=== PATIENT | female | born 1950 | race African-American/Black ===

== ENCOUNTER 2017-06-24 21:56 | Inpatient (IN) | payer MEDICARE, MEDICAID ==
[~2017-06-24] VITALS: Ht 170.2 cm; Wt 80.7 kg
[~2017-06-24 21:56] MED LIST: ASPI81TA13 PO; ENAL2.5T PO; GABA100C9 PO; GLIP-116 PO; INSLANTI SC; METO50TA7 PO; SIMV20TA90 PO
[2017-06-24 23:26] LABS: Basophils # (auto) 0.1 uL; Eosinophils # (auto) 0.2 uL; Eosinophils % (auto) 2.1 % (0.0-7.0); Hematocrit 37.1 % (36.0-46.0); Hemoglobin 12.3 g/dL (12.2-16.2); Lymphocytes # (auto) 1.5 uL; Lymphocytes % (auto) 17.9 % (10.0-50.0); Mean Corpuscular Hemoglobin 29.1 pg (28.0-32.0); Mean Corpuscular Hgb Conc. 33.2 g/dL (32.0-36.0); Mean Corpuscular Volume 87.7 fL (80.0-100.0); Monocytes # (auto) 0.5 uL; Monocytes % (auto) 6.3 % (0.0-12.0); Neutrophils # (auto) 6.1 uL; Neutrophils % (auto) 72.7 % (37.0-80.0); Nucleated Red Blood Cells % 0.1 %; Platelet Count (auto) 230 10^3/uL (140-450); Red Blood Cells 4.23 10^6/uL (4.0-5.20); White Blood Cell 8.4 10^3/uL (4.4-10.8)
[2017-06-24 23:44] LABS: Alanine Aminotransferase 20 U/L (13-56); Albumin 3.1 g/dL (3.4-5.0); Anion Gap 10 (5-15); Aspartate Aminotransferase 22 U/L (15-37); BUN/Creatinine Ratio 21.5; Blood Alcohol < 3.0 mg/dL (0-5); Blood Urea Nitrogen 20 mg/dL (7-18); Carbon Dioxide 24 mmol/L (21-32); Chloride 104 mmol/L (98-107); GFR African American 78 mL/min; GFR Non-African American 64 mL/min; Glucose 121 mg/dL (74-106); Potassium 4.4 mmol/L (3.5-5.1); Sodium 138 mmol/L (136-145)
[2017-06-24 23:48] LABS: Alkaline Phosphatase 88 U/L (45-117); Bilirubin, Total 0.2 mg/dL (0.2-1.0); Total Protein 8.6 g/dL (6.4-8.2)
[2017-06-25 00:46] LABS: Amylase 35 U/L (25-115); Lipase 89 U/L (73-393)
[2017-06-25] MEDS ORDERED: cloNIDine HCL 0.1 MG TAB ONE (01:37)
[2017-06-25] MEDS ORDERED: cloNIDine HCL 0.1 MG TAB PO ONE (02:00)
[2017-06-25 02:29] LABS: Urine Bacteria FEW /hpf (None Seen); Urine Blood 1+ /uL (Negative); Urine Budding Yeast FEW /hpf (None Seen); Urine Specific Gravity 1.013 (1.001-1.035); Urine WBC 3 /hpf (0 - 5)
[2017-06-25 02:46] LABS: Alcohol, Urine < 3.0 mg/dL (0-5); Amphetamine Screen, Urine NEGATIVE (NEGATIVE); Barbiturate Scree,Urine NEGATIVE (NEGATIVE); Benzodiazephine Screen, Urine NEGATIVE (NEGATIVE); Cannabinoid Screen, Urine NEGATIVE (NEGATIVE); Cocaine Screen, Urine NEGATIVE (NEGATIVE); Opiate Scree,Urine NEGATIVE (NEGATIVE); Phencyclidine Screen, Urine NEGATIVE (NEGATIVE)
[2017-06-25] MEDS ORDERED: DEXTROSE (50%) 50ML SYRG IV PRN (04:15)
[2017-06-25] MEDS ORDERED: ACETAMINOPHEN 500 MG TAB PO PRN (04:15)
[2017-06-25] MEDS ORDERED: ONDANSETRON HCL 4 MG/2 ML VIAL IV PRN (04:15)
[2017-06-25 05:00] VITALS: BP 135/76
[2017-06-25 05:50] VITALS: BP 135/76
[2017-06-25] MEDS ORDERED: GABAPENTIN 100 MG CAP PO SCH (06:00)
[2017-06-25] MEDS ORDERED: CIPR-217 PO (06:19)
[2017-06-25] MEDS ORDERED: DOXY-216 PO (06:19)
[2017-06-25] MEDS ORDERED: OMEP20CA74 PO (06:19)
[2017-06-25] MEDS: ACCU-CHEK COMFORT CURVE STRIP VI SCH ×4 (06:24→22:23)
[2017-06-25] MEDS: InsuLIN REG 1unit/0.01ml Soln (100units/ml) SC SCH ×4 (06:29→22:00)
[2017-06-25 07:06] LABS: Basophils # (auto) 0.1 uL; Basophils % (auto) 1.1 % (0.0-2.0); Eosinophils # (auto) 0.1 uL; Eosinophils % (auto) 1.7 % (0.0-7.0); Hematocrit 37.8 % (36.0-46.0); Hemoglobin 12.5 g/dL (12.2-16.2); Lymphocytes # (auto) 1.8 uL; Lymphocytes % (auto) 24.5 % (10.0-50.0); Mean Corpuscular Hemoglobin 29.1 pg (28.0-32.0); Mean Corpuscular Volume 88.3 fL (80.0-100.0); Monocytes # (auto) 0.5 uL; Monocytes % (auto) 6.7 % (0.0-12.0); Neutrophils # (auto) 4.8 uL; Nucleated Red Blood Cells % 0.1 %; Platelet Count (auto) 244 10^3/uL (140-450); Red Blood Cells 4.28 10^6/uL (4.0-5.20); Red Cell Distribution Width 13.9 % (11.8-14.3); White Blood Cell 7.2 10^3/uL (4.4-10.8)
[2017-06-25 07:31] LABS: BUN/Creatinine Ratio 21.1; Calcium 8.7 mg/dL (8.5-10.1)
[2017-06-25 07:34] LABS: Cholesterol 150 mg/dL (< 200); HDL Cholesterol 47 mg/dL (40-59); LDL Cholesterol 94 mg/dL (< 100); Triglycerides 136 mg/dL (< 150)
[2017-06-25 09:00] VITALS: BP 139/87
[2017-06-25] MEDS: ASPirin-EC 81 mg tab PO SCH (10:11)
[2017-06-25] MEDS: METOPROLOL SUCCINATE XL 50 MG TAB PO SCH (10:11)
[2017-06-25] MEDS ORDERED: LORazepam 2MG/ML-1ML VIAL IV PRN (14:15)
[2017-06-25 16:39] VITALS: BP 143/82
[2017-06-25 22:00] VITALS: BP 155/81
[2017-06-25] MEDS ORDERED: INSULIN LANTUS (GLARGINE) 1 /0.01ml (100units/ml) SC SCH (22:00)
[2017-06-25] MEDS: ATORVASTATIN 20 MG TAB PO SCH (22:22)
[2017-06-25] MEDS: GABAPENTIN 100 MG CAP PO SCH (22:22)
[2017-06-26] VITALS (7 sets, daily range): BP systolic 140–159; BP diastolic 61–84
[2017-06-26] MEDS: ACCU-CHEK COMFORT CURVE STRIP VI SCH ×4 (06:14→21:45)
[2017-06-26] MEDS: GABAPENTIN 100 MG CAP PO SCH ×3 (06:14→21:45)
[2017-06-26] MEDS: InsuLIN REG 1unit/0.01ml Soln (100units/ml) SC SCH ×4 (06:21→21:45)
[2017-06-26 06:45] LABS: Anion Gap 7 (5-15); BUN/Creatinine Ratio 20.2; Blood Urea Nitrogen 18 mg/dL (7-18); Calcium 8.4 mg/dL (8.5-10.1); Carbon Dioxide 26 mmol/L (21-32); Chloride 106 mmol/L (98-107); GFR African American 82 mL/min; GFR Non-African American 67 mL/min; Glucose 131 mg/dL (74-106); Potassium 4.1 mmol/L (3.5-5.1); Sodium 139 mmol/L (136-145)
[2017-06-26] MEDS: ASPirin-EC 81 mg tab PO SCH (10:50)
[2017-06-26] MEDS: METOPROLOL SUCCINATE XL 50 MG TAB PO SCH (10:51)
[2017-06-26] MEDS ORDERED: ENALAPRIL MALEATE 10 MG TAB PO ONE (14:00)
[2017-06-26] MEDS: ATORVASTATIN 20 MG TAB PO SCH (21:44)
[2017-06-26] MEDS ORDERED: INSULIN LANTUS (GLARGINE) 1 /0.01ml (100units/ml) SC SCH (22:00)
[2017-06-27 05:00] VITALS: BP 136/75
[2017-06-27] MEDS: GABAPENTIN 100 MG CAP PO SCH ×3 (06:37→21:35)
[2017-06-27] MEDS: ACCU-CHEK COMFORT CURVE STRIP VI SCH ×4 (06:37→21:37)
[2017-06-27 06:38] LABS: BUN/Creatinine Ratio 21.6; Calcium 8.8 mg/dL (8.5-10.1); Potassium 4.3 mmol/L (3.5-5.1)
[2017-06-27] MEDS: InsuLIN REG 1unit/0.01ml Soln (100units/ml) SC SCH ×4 (06:40→21:38)
[2017-06-27 08:00] VITALS: BP 163/85
[2017-06-27] MEDS: ENALAPRIL MALEATE 10 MG TAB PO SCH (08:35)
[2017-06-27] MEDS: ASPirin-EC 81 mg tab PO SCH (08:36)
[2017-06-27] MEDS: METOPROLOL SUCCINATE XL 50 MG TAB PO SCH (08:36)
[2017-06-27 09:22] VITALS: BP 163/85
[2017-06-27] MEDS ORDERED: glipiZIDE 5 MG TAB PO ONE (11:45)
[2017-06-27] MEDS ORDERED: GAB100C PO (11:53)
[2017-06-27] MEDS ORDERED: amLODIPine BESYLATE 5 MG TAB PO ONE (12:00)
[2017-06-27] MEDS ORDERED: INSLANTI SC (12:17)
[2017-06-27 12:31] LABS: Hepatitis B Surface Antibody Negative
[2017-06-27 12:35] VITALS: BP 160/90
[2017-06-27 13:01] LABS: Hepatitis A Total Antibody Positive; Hepatitis C Antibody Negative (Negative)
[2017-06-27 13:26] LABS: Hepatitis B Core Total AB Positive; Hepatitis B Surface Antigen Positive (Negative)
[2017-06-27] MEDS: HYDROcodone-ACET 5/325MG TAB PO PRN (17:43)
[2017-06-27] MEDS ORDERED: cloNIDine HCL 0.1 MG TAB PO PRN (19:30)
[2017-06-27] MEDS: ATORVASTATIN 20 MG TAB PO SCH (21:35)
[2017-06-27 22:00] VITALS: BP 134/70
[2017-06-27] MEDS ORDERED: INSULIN LANTUS (GLARGINE) 1 /0.01ml (100units/ml) SC SCH (22:00)
[2017-06-28 04:49] VITALS: BP 145/75
[2017-06-28] MEDS: GABAPENTIN 100 MG CAP PO SCH ×2 (06:28→15:05)
[2017-06-28] MEDS: ACCU-CHEK COMFORT CURVE STRIP VI SCH ×3 (06:28→18:20)
[2017-06-28] MEDS: InsuLIN REG 1unit/0.01ml Soln (100units/ml) SC SCH ×3 (06:32→18:20)
[2017-06-28] MEDS: HYDROcodone-ACET 5/325MG TAB PO PRN (06:39)
[2017-06-28 08:12] VITALS: BP 140/77
[2017-06-28 11:42] VITALS: BP 139/70
[2017-06-28] MEDS: ASPirin-EC 81 mg tab PO SCH (13:13)
[2017-06-28] MEDS: ENALAPRIL MALEATE 10 MG TAB PO SCH (13:14)
[2017-06-28] MEDS: METOPROLOL SUCCINATE XL 50 MG TAB PO SCH (13:14)
== END 2017-06-28 19:25 | DRG 64 ==
LOC: EDBD 21:56 → ER 21:56 → OVERFLOW 21:57 → WEST WING 06-25 04:39
PROVIDERS: ADMIT Nurse Practitioner Family; ATTEND Internal Medicine
DX: I63.9 Cerebral infarction, unspecified (principal); G93.41 Metabolic encephalopathy; N17.9 Acute kidney failure, unspecified; B19.10 Unspecified viral hepatitis B without hepatic coma; E11.42 Type 2 diabetes mellitus with diabetic polyneuropathy; T66.XXXA Radiation sickness, unspecified, initial encounter; I10 Essential (primary) hypertension; E78.5 Hyperlipidemia, unspecified; E86.0 Dehydration; K21.9 Gastro-esophageal reflux disease without esophagitis; Z79.4 Long term (current) use of insulin; F32.9 Major depressive disorder, single episode, unspecified; Z79.82 Long term (current) use of aspirin; Z79.899 Other long term (current) drug therapy; Z80.3 Family history of malignant neoplasm of breast; Z82.49 Family history of ischemic heart disease and other diseases of the circulatory system; Z83.3 Family history of diabetes mellitus; Z90.710 Acquired absence of both cervix and uterus; Z71.3 Dietary counseling and surveillance
CPT/HCPCS: 36415; 70450; 70551; 71045; 80048; 80053; 80061; 80307; 80320; 81001; 82150; 82607; 82962; 83036; 83690; 83735; 84443; 84484; 85025; 86704; 86706; 86708; 86803; 87045; 87340; 87899; 93005; 93306; 93886; 95819; 97116; 97163; 97530; J1815; J2405

== ENCOUNTER 2017-08-03 16:18 | Inpatient (IN) | payer MEDICARE, MEDICAID ==
[~2017-08-03] VITALS: Ht 167.6 cm; Wt 85.0 kg
[~2017-08-03 16:18] MED LIST changes: +CIPR-217 PO; +DOXY-216 PO; +GAB100C PO; -GABA100C9 PO; -GLIP-116 PO; +OMEP20CA74 PO
[2017-08-03 19:00] LABS: Basophils # (auto) 0.1 uL; Basophils % (auto) 1.3 % (0.0-2.0); Eosinophils # (auto) 0.2 uL; Eosinophils % (auto) 3.1 % (0.0-7.0); Hemoglobin 11.3 g/dL (12.2-16.2); Lymphocytes # (auto) 2.3 uL; Mean Corpuscular Hemoglobin 29.6 pg (28.0-32.0); Mean Corpuscular Hgb Conc. 34.2 g/dL (32.0-36.0); Mean Corpuscular Volume 86.7 fL (80.0-100.0); Monocytes # (auto) 0.6 uL; Monocytes % (auto) 8.7 % (0.0-12.0); Neutrophils # (auto) 3.9 uL; Neutrophils % (auto) 54.9 % (37.0-80.0); Nucleated Red Blood Cells % 0.1 %; Platelet Count (auto) 217 10^3/uL (140-450); Red Cell Distribution Width 14.8 % (11.8-14.3); White Blood Cell 7.1 10^3/uL (4.4-10.8)
[2017-08-03] MEDS ORDERED: ASPirin-EC 81 mg tab PO ONE (19:00)
[2017-08-03 19:12] LABS: INR 0.95 (0.9-1.15); Partial Thromboplastin Time 26.5 sec (22.64-33.71); Prothrombin Time 10.4 sec (9.37-12.3)
[2017-08-03 19:26] LABS: Alanine Aminotransferase 14 U/L (13-56); Albumin 2.8 g/dL (3.4-5.0); Alkaline Phosphatase 66 U/L (45-117); Anion Gap 6 (5-15); Aspartate Aminotransferase 27 U/L (15-37); BUN/Creatinine Ratio 17.8; Bilirubin, Total 0.1 mg/dL (0.2-1.0); Blood Urea Nitrogen 18 mg/dL (7-18); Carbon Dioxide 28 mmol/L (21-32); Chloride 108 mmol/L (98-107); GFR African American 70 mL/min; GFR Non-African American 58 mL/min; Glucose 62 mg/dL (74-106); Magnesium 2.2 mg/dL (1.6-2.6); Potassium 3.7 mmol/L (3.5-5.1); Sodium 142 mmol/L (136-145); Total Protein 7.8 g/dL (6.4-8.2)
[2017-08-03] MEDS ORDERED: MORPHINE SULFATE 4 MG/ML SYR/VIAL IV PRN (22:00)
[2017-08-03] MEDS ORDERED: NITROGLYCERIN 0.4 MG SL TAB SL PRN (22:00)
[2017-08-03] MEDS ORDERED: ONDANSETRON HCL 4 MG/2 ML VIAL IV PRN (22:00)
[2017-08-03] MEDS ORDERED: ACETAMINOPHEN 500 MG TAB PO PRN (22:00)
[2017-08-03] MEDS ORDERED: HYDROcodone-ACET 5/325MG TAB PO PRN (22:00)
[2017-08-03] MEDS ORDERED: GABAPENTIN 100 MG CAP PO SCH (22:00)
[2017-08-03] MEDS ORDERED: DEXTROSE (50%) 50ML SYRG IV PRN (23:15)
[2017-08-03] MEDS ORDERED: cloNIDine HCL 0.1 MG TAB PO PRN (23:30)
[2017-08-04] MEDS ORDERED: cloNIDine HCL 0.1 MG TAB PO PRN
[2017-08-04 01:00] VITALS: BP 142/84
[2017-08-04 05:00] VITALS: BP 143/75
[2017-08-04] MEDS: ACCU-CHEK COMFORT CURVE STRIP VI SCH ×2 (06:18→11:23)
[2017-08-04] MEDS: GABAPENTIN 100 MG CAP PO SCH ×2 (06:18→14:28)
[2017-08-04] MEDS: InsuLIN REG 1unit/0.01ml Soln (100units/ml) SC SCH ×2 (06:23→11:22)
[2017-08-04 06:48] LABS: Basophils # (auto) 0 uL; Basophils % (auto) 0.7 % (0.0-2.0); Eosinophils # (auto) 0.2 uL; Eosinophils % (auto) 3.3 % (0.0-7.0); Hematocrit 33.9 % (36.0-46.0); Hemoglobin 11.3 g/dL (12.2-16.2); Lymphocytes # (auto) 1.9 uL; Lymphocytes % (auto) 31.5 % (10.0-50.0); Mean Corpuscular Hemoglobin 28.8 pg (28.0-32.0); Mean Corpuscular Hgb Conc. 33.4 g/dL (32.0-36.0); Mean Corpuscular Volume 86.4 fL (80.0-100.0); Monocytes # (auto) 0.5 uL; Monocytes % (auto) 7.9 % (0.0-12.0); Neutrophils # (auto) 3.5 uL; Neutrophils % (auto) 56.6 % (37.0-80.0); Platelet Count (auto) 222 10^3/uL (140-450); Red Blood Cells 3.92 10^6/uL (4.0-5.20); Red Cell Distribution Width 14.5 % (11.8-14.3); White Blood Cell 6.2 10^3/uL (4.4-10.8)
[2017-08-04 07:19] LABS: BUN/Creatinine Ratio 17.8; Calcium 8.2 mg/dL (8.5-10.1); Potassium 3.8 mmol/L (3.5-5.1)
[2017-08-04 08:00] VITALS: BP 142/84
[2017-08-04 09:00] VITALS: BP 164/80
[2017-08-04] MEDS ORDERED: ENALAPRIL MALEATE 10 MG TAB PO SCH (10:00)
[2017-08-04] MEDS ORDERED: ASPirin-EC 81 mg tab PO SCH (10:00)
[2017-08-04] MEDS ORDERED: METOPROLOL SUCCINATE XL 50 MG TAB PO SCH (10:00)
[2017-08-04 13:00] VITALS: BP 131/61
[2017-08-04 15:53] VITALS: BP 164/80
== END 2017-08-04 17:15 | disposition home or self-care (01) | DRG 683 ==
LOC: ER 16:18 → TELE 16:19 → TELE-WESTW 23:16
PROVIDERS: ADMIT Nurse Practitioner Family; ATTEND Nurse Practitioner Family
DX: I12.9 Hypertensive chronic kidney disease with stage 1 through stage 4 chronic kidney disease, or unspecified chronic kidney disease (principal); E44.0 Moderate protein-calorie malnutrition; E11.22 Type 2 diabetes mellitus with diabetic chronic kidney disease; E11.51 Type 2 diabetes mellitus with diabetic peripheral angiopathy without gangrene; E11.621 Type 2 diabetes mellitus with foot ulcer; I25.10 Atherosclerotic heart disease of native coronary artery without angina pectoris; E11.65 Type 2 diabetes mellitus with hyperglycemia; E78.5 Hyperlipidemia, unspecified; D63.8 Anemia in other chronic diseases classified elsewhere; F32.9 Major depressive disorder, single episode, unspecified; F41.9 Anxiety disorder, unspecified; K21.9 Gastro-esophageal reflux disease without esophagitis; L97.519 Non-pressure chronic ulcer of other part of right foot with unspecified severity; L97.529 Non-pressure chronic ulcer of other part of left foot with unspecified severity; Z79.4 Long term (current) use of insulin; Z79.82 Long term (current) use of aspirin; Z80.3 Family history of malignant neoplasm of breast; Z79.899 Other long term (current) drug therapy; Z82.49 Family history of ischemic heart disease and other diseases of the circulatory system; Z85.3 Personal history of malignant neoplasm of breast; Z83.3 Family history of diabetes mellitus; Z90.710 Acquired absence of both cervix and uterus; Z86.73 Personal history of transient ischemic attack (TIA), and cerebral infarction without residual deficits; Z68.30 Body mass index [BMI] 30.0-30.9, adult; N18.2 Chronic kidney disease, stage 2 (mild)
CPT/HCPCS: 36415; 71045; 80048; 80053; 82962; 83036; 83735; 83880; 84443; 84484; 85025; 85610; 85730; 87081; 93005; 94761; J1815

== ENCOUNTER 2018-03-22 12:49 | Inpatient (IN) | payer MEDICARE, MEDICAID ==
[~2018-03-22] VITALS: Ht 170.2 cm; Wt 89.1 kg
[~2018-03-22 12:49] MED LIST changes: +ASPI1TAB19 PO; -ASPI81TA13 PO; -CIPR-217 PO; -DOXY-216 PO; +MET5XLT PO; -METO50TA7 PO
[2018-03-22] MEDS ORDERED: ASPirin 81 mg TAB PO ONE (14:00)
[2018-03-22 14:30] LABS: Basophils # (auto) 0.1 uL; Basophils % (auto) 0.9 % (0.0-2.0); Eosinophils # (auto) 0.1 uL; Eosinophils % (auto) 2.3 % (0.0-7.0); Hematocrit 39.9 % (36.0-46.0); Hemoglobin 13.2 g/dL (12.2-16.2); Lymphocytes # (auto) 1.6 uL; Lymphocytes % (auto) 26.7 % (10.0-50.0); Mean Corpuscular Hemoglobin 29.7 pg (28.0-32.0); Mean Corpuscular Hgb Conc. 33.1 g/dL (32.0-36.0); Mean Corpuscular Volume 89.9 fL (80.0-100.0); Monocytes # (auto) 0.5 uL; Monocytes % (auto) 7.8 % (0.0-12.0); Neutrophils # (auto) 3.8 uL; Neutrophils % (auto) 62.3 % (37.0-80.0); Nucleated Red Blood Cells % 0.1 %; Platelet Count (auto) 242 10^3/uL (140-450); Red Blood Cells 4.43 10^6/uL (4.0-5.20); Red Cell Distribution Width 14.8 % (11.8-14.3)
[2018-03-22 14:40] LABS: INR 0.97 (0.9-1.15); Prothrombin Time 10.4 sec (9.27-12.13)
[2018-03-22 14:53] LABS: Albumin 3.1 g/dL (3.4-5.0); Anion Gap 11 (5-15); Blood Urea Nitrogen 20 mg/dL (7-18); Calcium 8.9 mg/dL (8.5-10.1); Carbon Dioxide 23 mmol/L (21-32); Chloride 100 mmol/L (98-107); Glucose 400 mg/dL (74-106); Potassium 4.3 mmol/L (3.5-5.1); Sodium 134 mmol/L (136-145)
[2018-03-22 15:01] LABS: Alanine Aminotransferase 29 U/L (13-56); Alkaline Phosphatase 91 U/L (45-117); Aspartate Aminotransferase 21 U/L (15-37); BUN/Creatinine Ratio 13.5; Bilirubin, Total 0.4 mg/dL (0.2-1.0); GFR African American 45 mL/min; GFR Non-African American 37 mL/min; Total Protein 9.3 g/dL (6.4-8.2)
[2018-03-22] MEDS ORDERED: LORazepam 0.5 MG TAB PO PRN (17:30)
[2018-03-22] MEDS ORDERED: NITROGLYCERIN 0.4 MG SL TAB SL PRN (17:30)
[2018-03-22] MEDS ORDERED: TEMAZEPAM 15 MG CAP PO PRN (17:30)
[2018-03-22] MEDS ORDERED: DEXTROSE (50%) 50ML SYRG IV PRN (17:30)
[2018-03-22] MEDS ORDERED: ACETAMINOPHEN 500 MG TAB PO PRN (17:30)
[2018-03-22] MEDS ORDERED: MORPHINE SULFATE 4 MG/ML SYR/VIAL IV PRN (17:30)
[2018-03-22] MEDS: SODIUM CHLORIDE 0.9% 1,000 ML IV SCH (17:54)
[2018-03-22] MEDS: PANTOPRAZOLE 40 MG TAB PO SCH (17:54)
[2018-03-22] MEDS: ACCU-CHEK COMFORT CURVE STRIP VI SCH ×2 (17:55→23:14)
[2018-03-22] MEDS: INSULIN LANTUS (GLARGINE) 1 /0.01ml (100units/ml) SC SCH (17:59)
[2018-03-22] MEDS: InsuLIN REG 1unit/0.01ml Soln (100units/ml) SC SCH ×2 (17:59→23:15)
[2018-03-22 18:02] LABS: Urine Bacteria MOD /hpf (None Seen); Urine Blood 1+ /uL (Negative); Urine Mucus FEW (None Seen); Urine Specific Gravity 1.021 (1.001-1.035); Urine WBC 1 /hpf (0 - 5)
[2018-03-22 18:10] LABS: Alcohol, Urine < 3.0 mg/dL (0-5); Amphetamine Screen, Urine NEGATIVE (NEGATIVE); Barbiturate Scree,Urine NEGATIVE (NEGATIVE); Benzodiazephine Screen, Urine NEGATIVE (NEGATIVE); Cannabinoid Screen, Urine NEGATIVE (NEGATIVE); Cocaine Screen, Urine NEGATIVE (NEGATIVE); Opiate Scree,Urine NEGATIVE (NEGATIVE); Phencyclidine Screen, Urine NEGATIVE (NEGATIVE)
[2018-03-22 22:00] VITALS: BP 150/89
[2018-03-22] MEDS ORDERED: ATORVASTATIN 20 MG TAB PO SCH (22:00)
[2018-03-22] MEDS: GABAPENTIN 100 MG CAP PO SCH (23:13)
[2018-03-22] MEDS: SULFAMETHOX W/TRIMETH(800/160MG) DS TAB PO SCH (23:13)
[2018-03-22] MEDS: ATORVASTATIN 20 MG TAB PO SCH (23:13)
[2018-03-22] MEDS: DOXYCYCLINE 100 MG TAB/CAP PO SCH (23:14)
[2018-03-23] MEDS: InsuLIN REG 1unit/0.01ml Soln (100units/ml) SC SCH ×5 (03:16→20:07)
[2018-03-23] MEDS: ACCU-CHEK COMFORT CURVE STRIP VI SCH ×5 (03:17→20:06)
[2018-03-23 05:00] VITALS: BP 122/60
[2018-03-23] MEDS: INSULIN LANTUS (GLARGINE) 1 /0.01ml (100units/ml) SC SCH ×2 (06:23→17:58)
[2018-03-23] MEDS: SODIUM CHLORIDE 0.9% 1,000 ML IV SCH ×2 (06:34→13:24)
[2018-03-23 07:22] LABS: Basophils # (auto) 0 uL; Basophils % (auto) 0.6 % (0.0-2.0); Eosinophils # (auto) 0.2 uL; Eosinophils % (auto) 3.5 % (0.0-7.0); Hematocrit 36.7 % (36.0-46.0); Hemoglobin 12.2 g/dL (12.2-16.2); Lymphocytes # (auto) 1.8 uL; Lymphocytes % (auto) 34.8 % (10.0-50.0); Mean Corpuscular Hemoglobin 29.6 pg (28.0-32.0); Mean Corpuscular Hgb Conc. 33.3 g/dL (32.0-36.0); Mean Corpuscular Volume 88.7 fL (80.0-100.0); Monocytes # (auto) 0.5 uL; Monocytes % (auto) 9.5 % (0.0-12.0); Neutrophils # (auto) 2.7 uL; Neutrophils % (auto) 51.6 % (37.0-80.0); Nucleated Red Blood Cells % 0.1 %; Platelet Count (auto) 217 10^3/uL (140-450); Red Blood Cells 4.14 10^6/uL (4.0-5.20); White Blood Cell 5.3 10^3/uL (4.4-10.8)
[2018-03-23 07:39] LABS: Albumin 2.7 g/dL (3.4-5.0); Calcium 8.7 mg/dL (8.5-10.1); Potassium 3.9 mmol/L (3.5-5.1)
[2018-03-23 07:43] LABS: BUN/Creatinine Ratio 14.6; Bilirubin, Total 0.2 mg/dL (0.2-1.0); Total Protein 8.2 g/dL (6.4-8.2)
[2018-03-23 08:00] VITALS: BP 134/78
[2018-03-23 09:00] VITALS: BP 134/78
[2018-03-23] MEDS: cefTRIAXone 1GM/50ML D5W 50 ML IV SCH (09:16)
[2018-03-23] MEDS ORDERED: PATIENTS OWN MEDICATION (Omeprazole (Prilosec) 1 CAP) PO SCH (10:00)
[2018-03-23] MEDS: NITROGLYCERIN 0.2MG/HR TOPICAL PATCH TD SCH (10:00)
[2018-03-23] MEDS ORDERED: METOPROLOL SUCCINATE XL 50 MG TAB PO SCH (10:00)
[2018-03-23] MEDS ORDERED: ENALAPRIL MALEATE 2.5 MG TAB PO SCH (10:00)
[2018-03-23] MEDS: DOXYCYCLINE 100 MG TAB/CAP PO SCH ×2 (11:14→21:38)
[2018-03-23] MEDS: ENOXAPARIN SOD 40 MG/0.4 ML SYRINGE SC SCH (11:14)
[2018-03-23] MEDS: METOPROLOL SUCCINATE XL 50 MG TAB PO SCH (11:14)
[2018-03-23] MEDS: GABAPENTIN 100 MG CAP PO SCH ×2 (11:14→21:38)
[2018-03-23] MEDS: SULFAMETHOX W/TRIMETH(800/160MG) DS TAB PO SCH ×2 (11:14→21:37)
[2018-03-23] MEDS: PANTOPRAZOLE 40 MG TAB PO SCH (11:15)
[2018-03-23] MEDS: ASPirin-EC 81 mg tab PO SCH (11:15)
[2018-03-23] MEDS: ENALAPRIL MALEATE 10 MG TAB PO SCH (11:29)
[2018-03-23] MEDS: PROMETHAZINE HCL 25 MG/ML 1ML IV PRN (12:51)
[2018-03-23 13:17] VITALS: BP 163/105
[2018-03-23 17:40] VITALS: BP 159/84
[2018-03-23] MEDS: ATORVASTATIN 20 MG TAB PO SCH (21:38)
[2018-03-23 21:51] VITALS: BP 142/82
[2018-03-24] MEDS: ACCU-CHEK COMFORT CURVE STRIP VI SCH ×7 (00:02→23:41)
[2018-03-24] MEDS: InsuLIN REG 1unit/0.01ml Soln (100units/ml) SC SCH ×7 (00:02→23:41)
[2018-03-24] MEDS: SODIUM CHLORIDE 0.9% 1,000 ML IV SCH ×3 (00:02→19:32)
[2018-03-24 04:53] VITALS: BP 178/85
[2018-03-24] MEDS: cloNIDine HCL 0.1 MG TAB PO PRN (05:29)
[2018-03-24] MEDS: INSULIN LANTUS (GLARGINE) 1 /0.01ml (100units/ml) SC SCH ×2 (06:38→18:15)
[2018-03-24] MEDS: cefTRIAXone 1GM/50ML D5W 50 ML IV SCH (08:53)
[2018-03-24] MEDS: PROMETHAZINE HCL 25 MG/ML 1ML IV PRN (08:53)
[2018-03-24] MEDS: NITROGLYCERIN 0.2MG/HR TOPICAL PATCH TD SCH (08:54)
[2018-03-24] MEDS: ENOXAPARIN SOD 40 MG/0.4 ML SYRINGE SC SCH (08:54)
[2018-03-24] MEDS: PANTOPRAZOLE 40 MG TAB PO SCH (08:55)
[2018-03-24] MEDS: SULFAMETHOX W/TRIMETH(800/160MG) DS TAB PO SCH ×2 (08:56→21:19)
[2018-03-24] MEDS: HYDROcodone-ACET 5/325MG TAB PO PRN (08:56)
[2018-03-24] MEDS: ASPirin-EC 81 mg tab PO SCH (08:56)
[2018-03-24] MEDS: GABAPENTIN 100 MG CAP PO SCH ×2 (08:56→21:18)
[2018-03-24] MEDS: DOXYCYCLINE 100 MG TAB/CAP PO SCH ×2 (08:56→21:19)
[2018-03-24] MEDS: METOPROLOL SUCCINATE XL 50 MG TAB PO SCH (08:57)
[2018-03-24] MEDS: ENALAPRIL MALEATE 10 MG TAB PO SCH (08:57)
[2018-03-24 09:00] VITALS: BP 199/92
[2018-03-24 13:00] VITALS: BP 133/79
[2018-03-24 17:00] VITALS: BP 137/74
[2018-03-24] MEDS: ATORVASTATIN 20 MG TAB PO SCH (21:19)
[2018-03-24 22:00] VITALS: BP 124/79
[2018-03-25] MEDS: InsuLIN REG 1unit/0.01ml Soln (100units/ml) SC SCH ×5 (03:36→20:01)
[2018-03-25] MEDS: ACCU-CHEK COMFORT CURVE STRIP VI SCH ×5 (03:36→20:01)
[2018-03-25 05:00] VITALS: BP 129/69
[2018-03-25] MEDS: SODIUM CHLORIDE 0.9% 1,000 ML IV SCH ×2 (05:53→16:56)
[2018-03-25] MEDS: INSULIN LANTUS (GLARGINE) 1 /0.01ml (100units/ml) SC SCH ×2 (06:42→18:11)
[2018-03-25 09:00] VITALS: BP 139/77
[2018-03-25] MEDS: cefTRIAXone 1GM/50ML D5W 50 ML IV SCH (09:06)
[2018-03-25] MEDS: ENOXAPARIN SOD 40 MG/0.4 ML SYRINGE SC SCH (09:39)
[2018-03-25] MEDS: SULFAMETHOX W/TRIMETH(800/160MG) DS TAB PO SCH (09:40)
[2018-03-25] MEDS: ASPirin-EC 81 mg tab PO SCH (09:40)
[2018-03-25] MEDS: PANTOPRAZOLE 40 MG TAB PO SCH (09:40)
[2018-03-25] MEDS: DOXYCYCLINE 100 MG TAB/CAP PO SCH ×2 (09:41→22:10)
[2018-03-25] MEDS: GABAPENTIN 100 MG CAP PO SCH ×2 (09:41→22:10)
[2018-03-25] MEDS: NITROGLYCERIN 0.2MG/HR TOPICAL PATCH TD SCH (09:42)
[2018-03-25] MEDS: METOPROLOL SUCCINATE XL 50 MG TAB PO SCH (09:42)
[2018-03-25] MEDS: ENALAPRIL MALEATE 10 MG TAB PO SCH (09:43)
[2018-03-25] MEDS: cloNIDine HCL 0.1 MG TAB PO PRN (11:43)
[2018-03-25] MEDS: PROMETHAZINE HCL 25 MG/ML 1ML IV PRN (12:02)
[2018-03-25 13:00] VITALS: BP 183/93
[2018-03-25] MEDS: CLOTRIMAZOLE 1 % CREAM 15GM TOP SCH ×2 (16:56→22:10)
[2018-03-25 17:00] VITALS: BP 107/69
[2018-03-25] MEDS: HYDROcodone-ACET 5/325MG TAB PO PRN (20:26)
[2018-03-25 22:00] VITALS: BP 112/65
[2018-03-25] MEDS: ATORVASTATIN 20 MG TAB PO SCH (22:10)
[2018-03-26] MEDS: ACCU-CHEK COMFORT CURVE STRIP VI SCH ×6 (00:10→20:29)
[2018-03-26] MEDS: InsuLIN REG 1unit/0.01ml Soln (100units/ml) SC SCH ×6 (00:10→20:35)
[2018-03-26] MEDS: SODIUM CHLORIDE 0.9% 1,000 ML IV SCH ×2 (01:24→21:42)
[2018-03-26 05:00] VITALS: BP 128/66
[2018-03-26] MEDS: PROMETHAZINE HCL 25 MG/ML 1ML IV PRN ×2 (05:00→17:47)
[2018-03-26] MEDS: INSULIN LANTUS (GLARGINE) 1 /0.01ml (100units/ml) SC SCH ×2 (06:27→18:00)
[2018-03-26 08:34] LABS: Basophils # (auto) 0.1 uL; Basophils % (auto) 1.1 % (0.0-2.0); Eosinophils # (auto) 0.3 uL; Eosinophils % (auto) 4.8 % (0.0-7.0); Hematocrit 35.8 % (36.0-46.0); Hemoglobin 11.8 g/dL (12.2-16.2); Lymphocytes # (auto) 1.8 uL; Mean Corpuscular Hemoglobin 29.5 pg (28.0-32.0); Mean Corpuscular Hgb Conc. 32.9 g/dL (32.0-36.0); Mean Corpuscular Volume 89.7 fL (80.0-100.0); Monocytes # (auto) 0.5 uL; Monocytes % (auto) 10.1 % (0.0-12.0); Neutrophils # (auto) 2.7 uL; Nucleated Red Blood Cells % 0.1 %; Platelet Count (auto) 196 10^3/uL (140-450); Red Blood Cells 3.99 10^6/uL (4.0-5.20); Red Cell Distribution Width 14.9 % (11.8-14.3); White Blood Cell 5.4 10^3/uL (4.4-10.8)
[2018-03-26 08:51] LABS: INR 0.9 (0.9-1.15); Partial Thromboplastin Time 19.5 sec (23.78-33.04); Prothrombin Time 9.7 sec (9.27-12.13)
[2018-03-26 08:54] LABS: Albumin 2.4 g/dL (3.4-5.0); Calcium 8.3 mg/dL (8.5-10.1); Potassium 4.4 mmol/L (3.5-5.1)
[2018-03-26 08:58] LABS: BUN/Creatinine Ratio 12.9; Bilirubin, Total 0.2 mg/dL (0.2-1.0); Total Protein 7.6 g/dL (6.4-8.2)
[2018-03-26] MEDS: cefTRIAXone 1GM/50ML D5W 50 ML IV SCH (09:06)
[2018-03-26 09:25] VITALS: BP 125/77
[2018-03-26] MEDS: ASPirin-EC 81 mg tab PO SCH (10:00)
[2018-03-26] MEDS: PANTOPRAZOLE 40 MG TAB PO SCH (10:00)
[2018-03-26] MEDS: DOXYCYCLINE 100 MG TAB/CAP PO SCH ×2 (10:00→21:56)
[2018-03-26] MEDS: GABAPENTIN 100 MG CAP PO SCH ×2 (10:00→21:55)
[2018-03-26] MEDS ORDERED: LIDOCAINE 2%HCL (LOCAL ANESTH.) INJ 20ML MDV ONE (13:05)
[2018-03-26] MEDS ORDERED: IOHEXOL 350 MG/ML 100ML IJ ONE (13:05)
[2018-03-26 13:23] VITALS: BP 139/79
[2018-03-26] MEDS ORDERED: MIDAZOLAM HCL 1MG/1ML-2 ML VIAL ONE (13:56)
[2018-03-26] MEDS ORDERED: SODIUM CHL 0.9% 0 ML ONE (13:56)
[2018-03-26] MEDS ORDERED: fentaNYL CITRATE 100 MCG/2 ML VL ONE (13:56)
[2018-03-26] MEDS ORDERED: ANGIOMAX 250 MG VIAL IV ONE (13:56)
[2018-03-26 16:28] VITALS: BP 138/72
[2018-03-26] MEDS: NITROGLYCERIN 0.2MG/HR TOPICAL PATCH TD SCH (17:43)
[2018-03-26] MEDS: METOPROLOL SUCCINATE XL 50 MG TAB PO SCH (17:43)
[2018-03-26] MEDS: HYDROcodone-ACET 5/325MG TAB PO PRN (17:44)
[2018-03-26] MEDS: cloNIDine HCL 0.1 MG TAB PO PRN (17:45)
[2018-03-26] MEDS: ENALAPRIL MALEATE 10 MG TAB PO SCH (17:46)
[2018-03-26] MEDS: ENOXAPARIN SOD 40 MG/0.4 ML SYRINGE SC SCH (17:47)
[2018-03-26 21:50] VITALS: BP 103/58
[2018-03-26] MEDS: ATORVASTATIN 20 MG TAB PO SCH (21:55)
[2018-03-26] MEDS: CLOTRIMAZOLE 1 % CREAM 15GM TOP SCH (22:45)
[2018-03-27] MEDS: InsuLIN REG 1unit/0.01ml Soln (100units/ml) SC SCH ×5 (00:20→16:00)
[2018-03-27] MEDS: ACCU-CHEK COMFORT CURVE STRIP VI SCH ×5 (00:20→16:00)
[2018-03-27 05:00] VITALS: BP 168/86
[2018-03-27] MEDS: INSULIN LANTUS (GLARGINE) 1 /0.01ml (100units/ml) SC SCH (06:23)
[2018-03-27] MEDS: cloNIDine HCL 0.1 MG TAB PO PRN (07:07)
[2018-03-27] MEDS: MORPHINE SULFATE 4 MG/ML SYR/VIAL IV PRN ×2 (07:07→14:42)
[2018-03-27] MEDS: SODIUM CHLORIDE 0.9% 1,000 ML IV SCH (07:33)
[2018-03-27 08:00] VITALS: BP 127/69
[2018-03-27 09:00] VITALS: BP 167/88
[2018-03-27] MEDS: ENOXAPARIN SOD 40 MG/0.4 ML SYRINGE SC SCH (09:32)
[2018-03-27] MEDS: cefTRIAXone 1GM/50ML D5W 50 ML IV SCH (09:32)
[2018-03-27] MEDS: PANTOPRAZOLE 40 MG TAB PO SCH (09:33)
[2018-03-27] MEDS: ASPirin-EC 81 mg tab PO SCH (09:33)
[2018-03-27] MEDS: DOXYCYCLINE 100 MG TAB/CAP PO SCH (09:33)
[2018-03-27] MEDS: GABAPENTIN 100 MG CAP PO SCH (09:33)
[2018-03-27] MEDS: METOPROLOL SUCCINATE XL 50 MG TAB PO SCH (09:34)
[2018-03-27] MEDS: ENALAPRIL MALEATE 10 MG TAB PO SCH (09:34)
[2018-03-27] MEDS: CLOTRIMAZOLE 1 % CREAM 15GM TOP SCH (09:35)
[2018-03-27] MEDS: NITROGLYCERIN 0.2MG/HR TOPICAL PATCH TD SCH (09:35)
[2018-03-27 13:00] VITALS: BP 151/85
[2018-03-27 16:36] VITALS: BP 129/69
[2018-03-27 17:00] VITALS: BP 159/86
== END 2018-03-27 17:10 | disposition home health service (06) | DRG 264 ==
LOC: ER 12:49 → TELE 17:27 → TELE-EAST 20:10
PROVIDERS: ADMIT Internal Medicine; ATTEND Family Medicine
PROC: 0JBR0ZZ Excision of Left Foot Subcutaneous Tissue and Fascia, Open Approach (ICD-10-PCS; 2018-03-25)
PROC: B41G1ZZ Fluoroscopy of Left Lower Extremity Arteries using Low Osmolar Contrast (ICD-10-PCS; principal; 2018-03-26)
PROC: B41F1ZZ Fluoroscopy of Right Lower Extremity Arteries using Low Osmolar Contrast (ICD-10-PCS; 2018-03-26)
DX: I16.1 Hypertensive emergency (principal); N39.0 Urinary tract infection, site not specified; L03.116 Cellulitis of left lower limb; E11.621 Type 2 diabetes mellitus with foot ulcer; I12.9 Hypertensive chronic kidney disease with stage 1 through stage 4 chronic kidney disease, or unspecified chronic kidney disease; R07.89 Other chest pain; E11.65 Type 2 diabetes mellitus with hyperglycemia; N18.3 Chronic kidney disease, stage 3 (moderate); K74.60 Unspecified cirrhosis of liver; E11.21 Type 2 diabetes mellitus with diabetic nephropathy; E78.5 Hyperlipidemia, unspecified; K21.9 Gastro-esophageal reflux disease without esophagitis; E66.01 Morbid (severe) obesity due to excess calories; L97.529 Non-pressure chronic ulcer of other part of left foot with unspecified severity; B35.1 Tinea unguium; B35.3 Tinea pedis; E11.22 Type 2 diabetes mellitus with diabetic chronic kidney disease; E11.42 Type 2 diabetes mellitus with diabetic polyneuropathy; E11.628 Type 2 diabetes mellitus with other skin complications; E66.9 Obesity, unspecified; Z68.30 Body mass index [BMI] 30.0-30.9, adult; E78.00 Pure hypercholesterolemia, unspecified; F32.9 Major depressive disorder, single episode, unspecified; F41.9 Anxiety disorder, unspecified; I70.202 Unspecified atherosclerosis of native arteries of extremities, left leg; L84 Corns and callosities; Z80.3 Family history of malignant neoplasm of breast; Z82.49 Family history of ischemic heart disease and other diseases of the circulatory system; Z83.3 Family history of diabetes mellitus; Z86.73 Personal history of transient ischemic attack (TIA), and cerebral infarction without residual deficits; E11.51 Type 2 diabetes mellitus with diabetic peripheral angiopathy without gangrene; Z90.710 Acquired absence of both cervix and uterus; Z90.49 Acquired absence of other specified parts of digestive tract; Z79.4 Long term (current) use of insulin; Z79.82 Long term (current) use of aspirin; Z79.899 Other long term (current) drug therapy; I25.10 Atherosclerotic heart disease of native coronary artery without angina pectoris
CPT/HCPCS: 36415; 51702; 71045; 71046; 73630; 75716; 78582; 80053; 80061; 80307; 81001; 82550; 82962; 83036; 83735; 83880; 84443; 84484; 85025; 85379; 85610; 85652; 85730; 86141; 86850; 86900; 86901; 87077; 87186; 87205; 93005; 93886; 93926; 93970; 94761; 96372; 99152; A6257; G0378; J0696; J1815; J2250